=== PATIENT | female | born 1955 | race African-American/Black ===

== ENCOUNTER 2020-07-17 11:00 | Inpatient (IN) | payer OTHER ==
[2020-07-17 13:15] LABS: POTASSIUM 4.8 mmol/L (3.5-5.1)
[2020-07-17 13:16] LABS: BASO % 0.8 % (0-2.0); EOS % 1.6 % (0-4.5); HEMOGLOBIN 15.4 GM/dL (10.7-15.3); LYMPH % 18.9 % (8-40); MCH 29.9 pg (25.7-33.7); MCHC 33.5 g/dl (32.0-36.0); MEAN CELL VOLUME 89.2 fl (80-96); MEAN PLT VOLUME 12.4 fl (7.5-11.1); MONO % 6.2 % (3.8-10.2); NEUT % 72.5 % (42.8-82.8); PLATELET COUNT 165 K/MM3 (134-434); RBC 5.16 M/mm3 (3.60-5.2); RDW 13.3 % (11.6-15.6); WHITE BLOOD COUNT 9.1 K/mm3 (4.0-10.0)
[2020-07-17 13:17] LABS: CALCIUM 9.8 mg/dL (8.5-10.1)
[2020-07-17 13:18] LABS: ALBUMIN 4.1 g/dl (3.4-5.0); BLOOD UREA NITROGEN 16.1 mg/dL (7-18)
[2020-07-17 13:21] LABS: CREATININE 0.9 mg/dL (0.55-1.3)
[2020-07-17 13:22] LABS: BILIRUBIN,TOTAL 0.5 mg/dL (0.2-1); TOT PROT 8.3 g/dl (6.4-8.2)
[2020-07-17 13:26] LABS: INR 0.91 (0.83-1.09); PROTHROMBIN TIME (PATIENT) 11.2 SEC (9.7-13.0)
[2020-07-17 13:29] LABS: ACTIVATED PTT 23.3 SECONDS (25.2-36.5)
[2020-07-17] MEDS ORDERED: ATORVASTATIN CA 40 MG TABLET (FP) ONE (22:02)
[2020-07-17] MEDS: ATORVASTATIN CA 40 MG TABLET (FP) PO SCH (22:11)
[2020-07-18 02:24] VITALS: BMI 24.8
[2020-07-18 07:44] LABS: BASO % 0.7 % (0-2.0); EOS % 2.4 % (0-4.5); HEMATOCRIT 38.4 % (32.4-45.2); LYMPH % 27.4 % (8-40); MCH 29.8 pg (25.7-33.7); MEAN CELL VOLUME 87.7 fl (80-96); MEAN PLT VOLUME 11.5 fl (7.5-11.1); MONO % 9.1 % (3.8-10.2); NEUT % 60.4 % (42.8-82.8); PLATELET COUNT 150 K/MM3 (134-434); RBC 4.38 M/mm3 (3.60-5.2); RDW 13.1 % (11.6-15.6); WHITE BLOOD COUNT 8.7 K/mm3 (4.0-10.0)
[2020-07-18 08:20] LABS: POTASSIUM 3.8 mmol/L (3.5-5.1)
[2020-07-18 08:32] LABS: ALBUMIN 3.2 g/dl (3.4-5.0); BLOOD UREA NITROGEN 21.9 mg/dL (7-18); CALCIUM 9.2 mg/dL (8.5-10.1)
[2020-07-18 08:36] LABS: CREATININE 0.8 mg/dL (0.55-1.3); MAGNESIUM 2.1 mg/dL (1.8-2.4)
[2020-07-18 08:37] LABS: BILIRUBIN,TOTAL 0.2 mg/dL (0.2-1); TOT PROT 6.3 g/dl (6.4-8.2)
[2020-07-18] MEDS ORDERED: ACETAMINOPHEN 325 MG TABLET (FP) PO PRN (09:13)
[2020-07-18] MEDS: amLODIPine BESYLATE 5 MG TABLET (FP) PO SCH (09:48)
[2020-07-18] MEDS: ASPIRIN COATED 81 MG TABLET.EC PO SCH (09:48)
[2020-07-18] MEDS ORDERED: METOPROLOL TARTRATE 50 MG TABLET (FP) PO SCH (10:00)
[2020-07-18 10:28] LABS: PLATELET ESTIMATE DECREASED
[2020-07-18] MEDS: LISINOPRIL 5 MG TABLET PO SCH (12:23)
[2020-07-18] MEDS: ATORVASTATIN CA 40 MG TABLET (FP) PO SCH (22:49)
[2020-07-19] MEDS: amLODIPine BESYLATE 5 MG TABLET (FP) PO SCH (09:46)
[2020-07-19] MEDS: ASPIRIN COATED 81 MG TABLET.EC PO SCH (09:46)
[2020-07-19] MEDS: LISINOPRIL 5 MG TABLET PO SCH (09:46)
[2020-07-19] MEDS: ATORVASTATIN CA 40 MG TABLET (FP) PO SCH (21:40)
[2020-07-20] MEDS: ASPIRIN COATED 81 MG TABLET.EC PO SCH (09:17)
[2020-07-20] MEDS: amLODIPine BESYLATE 5 MG TABLET (FP) PO SCH (09:18)
[2020-07-20] MEDS: LISINOPRIL 5 MG TABLET PO SCH (09:18)
[2020-07-20 10:45] VITALS: BP 137/60; PULSE 55; TEMP 98.2
== END 2020-07-20 11:22 | disposition home or self-care (01) | DRG 72 ==
LOC: JER 11:00 → INTOOBSV 17:50 → JERBED 17:50 → J4W 07-18 00:47 → OBSVTOIN 07-19 13:52
PROVIDERS: ADMIT Internal Medicine; ATTEND Family Medicine
DX: G45.4 Transient global amnesia (principal); I10 Essential (primary) hypertension; E78.5 Hyperlipidemia, unspecified; M62.838 Other muscle spasm; R42 Dizziness and giddiness; I45.10 Unspecified right bundle-branch block; G93.9 Disorder of brain, unspecified
CPT/HCPCS: 36415; 70450-TC; 70551-TC; 71046-TC-FY; 80053; 80061; 82607; 82746; 83036; 83721; 83735; 84443; 85025; 85610; 85730; 87086; 93005; 93010; 93306-TC; 93880-TC; 97116-GP; 97162-GP; 99285-25; C9803; G0378; U0003

== ENCOUNTER 2020-10-07 16:01 | Emergency (ER) | payer OTHER ==
[2020-10-07 16:56] VITALS: BP 153/87; PULSE 75; TEMP 99; BMI 24.6
== END 2020-10-07 18:05 | disposition home or self-care (01) ==
LOC: JER 16:01 → JCOVINFU 16:01 → JER 18:05
DX: U07.1 COVID-19 (principal)
CPT/HCPCS: 71046-TC-FY; 99284-25